=== PATIENT | male | born 1990 | race Caucasian/White ===

== ENCOUNTER 2018-08-25 07:36 | Emergency (ER) | payer MEDICAID ==
[~2018-08-25] VITALS: Ht 185.4 cm; Wt 114.3 kg
[2018-08-25] MEDS ORDERED: ACETAMINOPHEN 500 MG TAB PO ONE (08:15)
[2018-08-25] MEDS ORDERED: HYDROcodone-ACET 10/325MG TAB PO ONE ×2 (09:15→11:00)
[2018-08-25] MEDS ORDERED: BACITRACIN TOP OINT 1 UD PKG TOP ONE (09:30)
[2018-08-25] MEDS ORDERED: LIDOCAINE 1% (LOCAL ANESTH.) PF 5ml SDV ID ONE (09:30)
[2018-08-25] MEDS ORDERED: TETANUS-DIPTH-ACEL PERTUSSIS 0.5ML SYRG IM ONE (10:15)
[2018-08-25 10:25] VITALS: BP 138/84
== END 2018-08-25 11:03 | disposition home or self-care (01) ==
LOC: ER 07:36
DX: S82.52XA Displaced fracture of medial malleolus of left tibia, initial encounter for closed fracture (principal); S01.01XA Laceration without foreign body of scalp, initial encounter; V49.9XXA Car occupant (driver) (passenger) injured in unspecified traffic accident, initial encounter; Y93.89 Activity, other specified; Y92.488 Other paved roadways as the place of occurrence of the external cause; Y99.8 Other external cause status
CPT/HCPCS: 12032; 29515; 70450; 70486; 73610; 90471; 90715